=== PATIENT | male | born 1985 | race Caucasian/White ===

== ENCOUNTER 2019-06-17 08:27 | Outpatient (CLI) | payer MEDICAID | END 2019-06-17 08:28 | disposition critical access hospital (66) | LOC: EMS 08:27 | PROVIDERS: ATTEND Surgery | DX: R00.2 Palpitations (principal); R20.0 Anesthesia of skin | CPT/HCPCS: A0425; A0429 ==

== ENCOUNTER 2019-06-17 08:47 | Emergency (ER) | payer MEDICAID ==
[2019-06-17] MEDS ORDERED: SODIUM CHLORIDE 0.9% 1,000 ML IV ONE (09:45)
--- NOTE | 2019-06-17 09:48 | ED Physician Documentation ---
PD HPI DYSPNEA - Stated complaint Stated Complaint: NUMBNESS - Chief complaint Chief Complaint: Cardiac - History obtained from History obtained from: Patient, Family - History of Present Illness Timing - onset: Today Timing - onset during: Rest Timing - duration: Hours (2) Timing - details: Abrupt onset, Now resolved Improved by: Rest Associated symptoms: Palpitations, Diaphoresis. No: Fever, Cough, Hemoptysis, Wheezing, Chest pain / discomfort, Bilateral edema, Unilateral edema Similar symptoms before: No diagnosis Recently seen: Not recently seen - Additional information Additional information: Previously well 33-year-old male has been having episodes of elevated blood pressure and diaphoresis for the past 2 months. This morning he was sitting having his coffee when he developed diaphoresis and rapid heart rate with elevated blood pressure. His took his blood pressure at 160/100 and he had a heart rate of 103. She took it subsequently it 8:00 and heart rate had gone down to 80. The patient felt some numbness in his left face and arm and went to the [facility] and was brought to the emergency department for evaluation. 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 Review of Systems Constitutional: reports: Sweats. denies: Fever, Fatigue Eyes: denies: Decreased vision Ears: denies: Ear pain Nose: denies: Congestion Throat: denies: Sore throat Cardiac: reports: Palpitations. denies: Chest pain / pressure Respiratory: denies: Dyspnea, Cough GI: denies: Abdominal Pain, Nausea, Vomiting : denies: Dysuria, Frequency PD PAST MEDICAL HISTORY - Past Medical History Cardiovascular: None Respiratory: None Neuro: None Endocrine/Autoimmune: None GI: None : None HEENT: None Psych: None Musculoskeletal: None Derm: None - Past Surgical History Past Surgical History: No - Present Medications Home Medications: Ambulatory Orders Medication Instructions Recorded Confirmed No Known Home Medications 06/17/19 06/17/19 - Allergies Allergies/Adverse Reactions: Allergies Allergy/AdvReac Type Severity Reaction Status Date / Time No Known Drug Allergies Allergy Verified 06/17/19 09:39 - Social History Does the pt smoke?: No Smoking Status: Former smoker Does the pt drink ETOH?: No Does the pt have substance abuse?: No Substance Use and Type: Marijuana - Immunizations Immunizations are current?: Yes PD ED PE NORMAL - Vitals Vital signs reviewed: Yes (hypertensive) - General General: Alert and oriented X 3, No acute distress, Well developed/nourished - HEENT HEENT: Atraumatic, PERRL, EOMI - Neck Neck: Supple, no meningeal sign, No bony TTP - Cardiac Cardiac: RRR, No murmur - Respiratory Respiratory: No respiratory distress, Clear bilaterally - Abdomen Abdomen: Normal bowel sounds, Soft, Non tender, Non distended, No organomegaly - Back Back: No CVA TTP, No spinal TTP - Derm Derm: Normal color, Warm and dry, No rash - Extremities Extremities: No deformity, No edema - Neuro Neuro: Alert and oriented X 3, 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, No motor deficit, No sensory deficit, Normal speech Eye Opening: Spontaneous Motor: Obeys Commands Verbal: Oriented GCS Score: 15 - Psych Psych: Normal mood, Normal affect Results - Vitals Vitals: Vital Signs - 24 hr 06/17/19 06/17/19 06/17/19 08:55 09:00 09:30 Temperature 36.8 C Heart Rate 86 85 81 Respiratory 20 84 H 11 L Rate Blood Pressure 145/85 H 143/86 H 122/74 O2 Saturation 95 96 95 06/17/19 06/17/19 10:00 10:30 Temperature Heart Rate 77 72 Respiratory 13 14 Rate Blood Pressure 131/86 H 122/75 O2 Saturation 95 96 Oxygen O2 Source Room air - EKG (time done) 0917 Rate: Rate (enter#) (84) Rhythm: NSR, Other (PVC) Ischemia: Normal ST segments Compare to prior EKG: Old EKG unavailable Computer interpretation: Agree with computer - Labs Labs: Laboratory Tests 06/17/19 06/17/19 06/17/19 09:57 09:57 09:57 WBC 8.2 RBC 5.29 Hgb 16.1 Hct 46.5 MCV 87.9 MCH 30.4 MCHC 34.6 RDW 12.4 Plt Count 282 MPV 10.4 Neut # (Auto) 6.0 Lymph # (Auto) 1.4 L [place] # (Auto) 0.5 Eos # (Auto) 0.1 Baso # (Auto) 0.1 Absolute Nucleated RBC 0.00 Nucleated RBC % 0.0 Sodium 139 Potassium 4.6 Chloride 109 Carbon Dioxide 22 Anion Gap 8.0 BUN 15 Creatinine 0.8 Estimated GFR (MDRD) 110 Glucose 98 Calcium 9.2 Total Bilirubin 0.3 AST 57 H ALT 90 H Alkaline Phosphatase 92 Troponin I High Sens < 2.3 L Total Protein 7.3 Albumin 4.4 Globulin 2.9 Albumin/Globulin Ratio 1.5 Lipase 121 H Procedures - IVC sono (time) 0945 Bedside IVC sono: IVC measures (cm) (1.12), IVC collapsed c insp (cm) (complete), Dehydration (est 1-2 liter deficit) Departure - Departure Disposition: Home, Self Care Clinical Impression: Dehydration, Elevated transaminase level Condition: Stable Instructions: ED Dehydration, Hepatitis Panel Follow-Up: [facility], [place] [Provider Group] Comments: Today we found that you were dehydrated and this is likely the reason for your symptoms this morning. In addition on your blood work we found some elevation of some liver functions and a hepatitis panel is pending. Follow-up with a primary care doctor at the [facility], [place].
[2019-06-17 10:06] LABS: BASOPHILS # (AUTO) 0.1 10^3/uL (0.0-0.1); BASOPHILS % (AUTO) 0.7 %; EOSINOPHILS # (AUTO) 0.1 10^3/uL (0.0-0.7); HGB - HEMOGLOBIN 16.1 g/dL (14.0-18.0); LYMPHOCYTES # (AUTO) 1.4 10^3/uL (1.5-3.5); LYMPHOCYTES % (AUTO) 17.5 %; MEAN CORPUSCULAR HEMOGLOBIN 30.4 pg (27.0-31.0); MEAN CORPUSCULAR HGB CONC 34.6 g/dL (32.0-36.0); MEAN CORPUSCULAR VOLUME 87.9 fL (80.0-94.0); MEAN PLATELET VOLUME 10.4 fL (7.4-11.4); MONOCYTES # (AUTO) 0.5 10^3/uL (0.0-1.0); MONOCYTES % (AUTO) 6.4 %; PLT - PLATELET COUNT 282 10^3/uL (130-450); RED BLOOD COUNT 5.29 10^6/uL (4.70-6.10); RED CELL DISTRIBUTION WIDTH 12.4 % (12.0-15.0); WHITE BLOOD COUNT 8.2 x10^3/uL (4.8-10.8)
--- NOTE | 2019-06-17 10:08 | XRAY Report ---
Reason: chest pain Procedure Date: 06/17/2019 Accession Number: [id number] / [id number] Procedure: XR - Chest 1 View X-Ray CPT Code: 76552 FULL RESULT: EXAM: CHEST RADIOGRAPHY EXAM DATE: 06/17/2019 09:56 AM. CLINICAL HISTORY: Chest pain. Numbness down left side. COMPARISON: None. TECHNIQUE: 1 view. FINDINGS: Lungs/Pleura: No focal opacities evident. No pleural effusion. No pneumothorax. Lung volumes are low. Mediastinum: Within exam limitations, the cardiomediastinal contour is normal. Other: None. IMPRESSION: 1. Mild hypoventilatory changes. 2. No acute disease. RADIA
[2019-06-17 10:19] LABS: ALBUMIN 4.4 g/dL (3.2-5.5); ALBUMIN/GLOBULIN RATIO 1.5 (1.0-2.2); BILIRUBIN,TOTAL 0.3 mg/dL (0.2-1.0); CALCIUM 9.2 mg/dL (8.5-10.3); CREATININE 0.8 mg/dL (0.6-1.2); TOTAL PROTEIN 7.3 g/dL (6.7-8.2)
[2019-06-17 11:03] VITALS: BP 124/82
[2019-06-18 12:06] LABS: HEPATITIS A IGM NON-REACTIVE (NON-REACTIVE); HEPATITIS B SURFACE ANTIGEN NON-REACTIVE (NON-REACTIVE); HEPATITIS C ANTIBODY NON-REACTIVE (NON-REACTIVE)
== END 2019-06-17 11:47 | disposition home or self-care (01) ==
LOC: EDUNIT# → ED 08:47
DX: E86.0 Dehydration (principal); I49.3 Ventricular premature depolarization; R74.0 Nonspecific elevation of levels of transaminase and lactic acid dehydrogenase [LDH]; Z87.891 Personal history of nicotine dependence
CPT/HCPCS: 36415; 71045; 80053; 80074; 83690; 84484; 85025; 93005; 96360; 96361; 99284

== ENCOUNTER 2019-09-29 20:40 | Outpatient (CLI) | payer MEDICAID | END 2019-09-29 20:41 | disposition EMS.NT | LOC: EMS 20:40 | PROVIDERS: ATTEND Surgery | DX: I10 Essential (primary) hypertension (principal); R00.0 Tachycardia, unspecified; R42 Dizziness and giddiness; R20.2 Paresthesia of skin; R09.89 Other specified symptoms and signs involving the circulatory and respiratory systems ==

== ENCOUNTER 2019-10-07 21:16 | Outpatient (CLI) | payer MEDICAID | END 2019-10-07 21:17 | disposition home or self-care (01) | LOC: EMS 21:16 | PROVIDERS: ATTEND Surgery | DX: I10 Essential (primary) hypertension (principal) ==

== ENCOUNTER 2021-04-04 13:24 | Outpatient (CLI) | payer MEDICAID | END 2021-04-04 13:25 | disposition EMS.NT | LOC: EMS 13:24 | DX: R00.2 Palpitations (principal); R20.0 Anesthesia of skin ==